=== PATIENT | female | born 1960 | race Caucasian/White ===

== ENCOUNTER 2021-11-05 15:11 | Emergency (ER) | payer BC ==
[2021-11-05] MEDS ORDERED: Ondansetron 4 MG Tab.DIS PO ONE (17:30)
== END 2021-11-05 17:45 | disposition home or self-care (01) ==
LOC: FB.ED 15:11
DX: U07.1 COVID-19 (principal); R11.0 Nausea; F43.21 Adjustment disorder with depressed mood; I10 Essential (primary) hypertension; E66.9 Obesity, unspecified; Z68.24 Body mass index [BMI] 24.0-24.9, adult; Z88.0 Allergy status to penicillin; Z88.1 Allergy status to other antibiotic agents; Z88.8 Allergy status to other drugs, medicaments and biological substances; Z79.82 Long term (current) use of aspirin; Z79.899 Other long term (current) drug therapy
CPT/HCPCS: 36415; 71045; 80053; 85025; 99283-25; Q0162